=== PATIENT | male | born 1970 | race Caucasian/White ===

== ENCOUNTER 2025-10-09 10:39 | Outpatient (CLI) | payer OTHER | END 2025-10-09 10:40 | disposition home or self-care (01) | LOC: MRI 10:39 | DX: M51.360 Other intervertebral disc degeneration, lumbar region with discogenic back pain only (principal); M51.370 Other intervertebral disc degeneration, lumbosacral region with discogenic back pain only; M47.816 Spondylosis without myelopathy or radiculopathy, lumbar region; M48.061 Spinal stenosis, lumbar region without neurogenic claudication; M48.07 Spinal stenosis, lumbosacral region; M47.814 Spondylosis without myelopathy or radiculopathy, thoracic region; M51.34 Other intervertebral disc degeneration, thoracic region; N28.1 Cyst of kidney, acquired | CPT/HCPCS: 72146; 72148 ==